=== PATIENT | male | born 1980 | race Caucasian/White ===

== ENCOUNTER 2020-09-06 04:12 | Emergency (ER) | payer MEDICAID ==
[~2020-09-06] VITALS: Ht 182.9 cm; Wt 79.5 kg
[2020-09-06 04:17] VITALS: BP 149/90
[2020-09-06] MEDS ORDERED: ondansetron 4mg/5ml UD cup PO ONE (05:00)
[2020-09-06] MEDS ORDERED: thiamine 100mg tablet PO ONE (05:00)
[2020-09-06] MEDS ORDERED: LORazepam 1 MG tablet PO ONE (05:00)
[2020-09-06] MEDS ORDERED: GABA-534 PO (05:10)
[2020-09-06] MEDS ORDERED: ondansetron 4mg rapidly disintigrating tab PO ONE (05:20)
== END 2020-09-06 05:28 | disposition home or self-care (01) ==
LOC: ER 04:13
DX: F10.239 Alcohol dependence with withdrawal, unspecified (principal); R11.0 Nausea; Z59.0 Homelessness; Y90.9 Presence of alcohol in blood, level not specified
CPT/HCPCS: 99284

== ENCOUNTER 2022-12-27 18:36 | Inpatient (IN) | payer MEDICAID ==
[~2022-12-27] VITALS: Ht 172.7 cm; Wt 104.8 kg
[~2022-12-27 18:36] MED LIST: GABA-534 PO; epiNEPHrine 0.1mg/ml 10ml syringe ONE; sod chloride 0.9% 10ml flush syringe IV ONE; sodium bicarbonate (8.4%) 1 mEq/ml syringe ONE
[2022-12-27] MEDS ORDERED: naloxone 2mg/2ml inj ONE (18:44)
[2022-12-27] MEDS ORDERED: dextrose 50%-water 50ml dispensing syringe IV ONE ×2 (18:45→19:00)
[2022-12-27 18:55] LABS: ABG BASE EXCESS -22.2 mmol/L (-2.0-2.0); ABG OXYGEN SATURATION 98.2 % (94-97); ABG PCO2 (T) 32.9 mmHg (35.0-48.0); ABG PO2 (T) 241.2 mmHg (75.0-100.0); ALLEN'S TEST POSITIVE; FCOHb 0.3 % (0.0-3.9); FMetHb 0.2 % (0.0-1.5); FO2Hb 97.7 % (94-97); TOTAL HEMOGLOBIN 12.7 G/dl (14.0-17.9)
[2022-12-27] MEDS ORDERED: dexamethasone sod phosphate 10mg/ml inj IV STA (18:55)
[2022-12-27] MEDS ORDERED: normal saline 1000ML IV soln IVB ONE ×2 (18:55→22:10)
[2022-12-27] MEDS ORDERED: potassium Cl 40MEQ/1/2NS 520ml 520 ML IV PRN ×2 (18:55→21:25)
[2022-12-27] MEDS ORDERED: potassium Cl 20 mEq SR tablet PO PRN ×4 (18:55→21:25)
[2022-12-27] MEDS ORDERED: magnesium 4gm in 100ml NS 100 ML IV PRN ×2 (18:55→21:25)
[2022-12-27] MEDS ORDERED: magnesium Cl slow-release 64mg tablet PO PRN ×2 (18:55→21:25)
[2022-12-27] MEDS ORDERED: dextrose 5%-1/2 normal saline 1,000 ML IV ONE (19:00)
[2022-12-27 19:16] LABS: BASOPHILS % (AUTO) 0.6 % (0-1); EOSINOPHILS % (AUTO) 0 % (0-6); HEMATOCRIT 30.4 % (42.0-52.0); HEMOGLOBIN 9.7 g/dl (14.0-17.9); LYMPHOCYTES # (AUTO) 0.3 X10'3 (1.1-4.8); LYMPHOCYTES % (AUTO) 5.6 % (21-51); MEAN CORPUSCULAR HEMOGLOBIN 30.4 PG (27.0-31.0); MEAN CORPUSCULAR HGB CONC 31.9 g/dL (33.0-36.5); MEAN CORPUSCULAR VOLUME 95.5 FL (78-98); MEAN PLATELET VOLUME 11.4 FL (7.4-10.4); MONOCYTES # (AUTO) 0.2 X10'3 (0-0.9); MONOCYTES % (AUTO) 3.5 % (2-12); NEUTROPHILS # (AUTO) 5.6 X10'3 (1.8-7.7); NEUTROPHILS % (AUTO) 90.3 % (42-75); PLATELET COUNT 65 X10'3 (140-440); RED BLOOD COUNT 3.18 X10'6 (4.70-6.10); RED CELL DISTRIBUTION WIDTH 15.8 % (11.5-14.5); WHITE BLOOD COUNT 6.2 X10'3 (4.5-11.0)
[2022-12-27 19:23] LABS: ALANINE AMINOTRANSFERASE 337 U/L (12-78); ALBUMIN 2.7 G/DL (3.4-5.0); ALBUMIN/GLOBULIN RATIO 1.1 (1.1-1.5); ALKALINE PHOSPHATASE 108 IU/L (46-116); ANION GAP 33 (8-16); ASPARTATE AMINO TRANSFERASE 759 U/L (10-37); BILIRUBIN,TOTAL 2.9 MG/DL (0.1-1.0); BLOOD UREA NITROGEN 49 MG/DL (7-18); BUN/CREATININE RATIO 23.1 (5.4-32.0); CALCIUM 7.7 MG/DL (8.5-10.1); CHLORIDE 82 MMOL/L (99-107); CREATININE 2.12 MG/DL (0.60-1.10); ETHANOL 0.242 GM/DL (0.0-0.010); MAGNESIUM 3.6 MG/DL (1.5-2.4); POTASSIUM 4.9 MMOL/L (3.5-5.1); SODIUM 125 MMOL/L (135-145); TOTAL PROTEIN 5.2 G/DL (6.4-8.2); eGFR 34 ML/MIN
[2022-12-27 19:27] LABS: PHOSPHORUS 11.5 MG/DL (2.3-4.5)
[2022-12-27 19:29] LABS: GLUCOSE 9 MG/DL (70-104); TOTAL CARBON DIOXIDE 10.5 MMOL/L (24-32)
[2022-12-27] MEDS ORDERED: propofol 1000mg/100ml bottle 100 ML IV PRN (19:40)
[2022-12-27] MEDS ORDERED: etomidate 2mg/ml inj. IV ONE (19:40)
[2022-12-27] MEDS ORDERED: rocuronium 10mg/ml inj IV ONE ×2 (19:40→21:00)
[2022-12-27 19:43] LABS: TOTAL CELLS COUNTED 100
[2022-12-27 19:44] LABS: PLATELET ESTIMATE DECREASED
[2022-12-27 19:45] LABS: BURR CELLS 3+
[2022-12-27 19:59] VITALS: BP 69/28
[2022-12-27] MEDS ORDERED: K and/or MAG REPLACEMENT MC SCH (20:00)
[2022-12-27 20:07] LABS: LACTIC SEPSIS 18.9 MMOL/L (0.4-2.0)
[2022-12-27 20:43] LABS: CLARITY,URINE SLIGHTLY CLOUDY (Clear); COLOR,URINE AMBER (Yellow); GLUCOSE, URINE NEGATIVE (Neg); KETONES,URINE 15 mg/dl (Neg); LEUKOCYTE ESTERASE ,URINE NEGATIVE (Neg); NITRITES, URINE NEGATIVE (Neg); OCCULT BLOOD,URINE NEGATIVE (Neg); PROTEIN,URINE TRACE mg/dl (Neg); UROBILINOGEN,URINE 0.2 E.U/dL (0.2-1.0)
[2022-12-27 20:44] LABS: UA COLLECTION TYPE FOLEY CATH
[2022-12-27 20:48] LABS: HYALINE CASTS >30 /LPF (NEGATIVE); MUCUS STRANDS FEW /LPF (Neg); SQUAMOUS EPITHELIAL CELL,UR FEW /LPF (FEW)
[2022-12-27 20:49] LABS: BACTERIA,URINE FEW /HPF (Neg); RBC,URINE 0-2 /HPF (0-2); WBC,URINE 0-4 /HPF (0-4)
[2022-12-27] MEDS ORDERED: piperacillin/tazo 3.375gm/50ml 50 ML IV ONE (20:50)
[2022-12-27] MEDS ORDERED: etomidate 2mg/ml inj. ONE (21:00)
[2022-12-27 21:04] LABS: URINE AMPHETAMINE SCREEN NEGATIVE (Neg); URINE BARBITUATE SCREEN NEGATIVE (Neg); URINE BENZODIAZEPINES SCREEN NEGATIVE (Neg); URINE CANNABINOID SCREEN POSITIVE (Neg); URINE COCAINE SCREEN NEGATIVE (Neg); URINE METHADONE SCREEN NEGATIVE (Neg); URINE OPIATE SCREEN NEGATIVE (Neg); URINE PHENCYCLIDINE SCREEN NEGATIVE (Neg)
[2022-12-27] MEDS ORDERED: vancomycin/NS 1 GM ADD-VANTAGE 250 ML IV SCH (21:13)
[2022-12-27] MEDS ORDERED: acetaminophen 325mg tablet PO PRN (21:25)
[2022-12-27] MEDS ORDERED: mag hydrox/Alum hydrox/simeth 30ml oral suspension PO PRN (21:25)
[2022-12-27] MEDS ORDERED: magnesium hydroxide 30ml (MOM) UD suspension PO PRN (21:25)
[2022-12-27] MEDS ORDERED: ondansetron/PF 4mg/2ml inj IV PRN (21:25)
[2022-12-27] MEDS ORDERED: vasopressin inj. 40 UNIT in dextrose 5%-water 50ml 38 ML IV SCH (22:00)
[2022-12-27 22:03] LABS: ABG BASE EXCESS -23.3 mmol/L (-2.0-2.0); ABG HCO3 6.8 mmol/L (22.0-26.0); ABG OXYGEN SATURATION 97.5 % (94-97); ABG PCO2 (T) 21.7 mmHg (35.0-48.0); ABG PO2 (T) 132.9 mmHg (75.0-100.0); FCOHb 0.3 % (0.0-3.9); FMetHb 0.4 % (0.0-1.5); FO2Hb 96.8 % (94-97); PATIENT TEMPERATURE 30.4; PEEP 5 cm H2O; RESPIRATORY RATE 18 b/min; TIDAL VOLUME 500 mL; TOTAL HEMOGLOBIN 10.8 G/dl (14.0-17.9)
[2022-12-27 22:04] LABS: CREATINE KINASE 4128 U/L (39-308)
[2022-12-27 22:28] LABS: ACETAMINOPHEN 3.7 UG/ML (10-30)
[2022-12-27] MEDS ORDERED: DEXTROSE 5% IV ONE ×3 (22:30→22:48)
[2022-12-27] MEDS ORDERED: ACETYLCYSTEINE IV ONE ×3 (22:30→22:48)
[2022-12-27] MEDS ORDERED: WATER IV ONE ×3 (22:30→22:48)
[2022-12-27] MEDS: SODIUM BICARB 150mEq/D5W 1L 1,000 ML IV SCH (22:36)
[2022-12-27] MEDS: vasopressin inj. 40 UNIT in normal saline 50ml IV soln 38 ML IV SCH (22:36)
[2022-12-27 22:57] VITALS: BP 85/24
[2022-12-28] VITALS (30 sets, daily range): BP systolic 95–199; BP diastolic 37–97
[2022-12-28] MEDS: NORepinephrine 8mg/ 250ml NS 250 ML IV PRN ×2 (00:37→20:57)
[2022-12-28] MEDS: methylPREDNISolone sod succ 125mg/2ml vial IV SCH ×3 (00:45→20:10)
[2022-12-28 02:28] LABS: HEMOGLOBIN 10.1 g/dl (14.0-17.9); LYMPHOCYTES # (AUTO) 0.4 X10'3 (1.1-4.8); MEAN CORPUSCULAR HEMOGLOBIN 30.8 PG (27.0-31.0); MONOCYTES # (AUTO) 0.2 X10'3 (0-0.9); MONOCYTES % (AUTO) 2.7 % (2-12); RED CELL DISTRIBUTION WIDTH 15.2 % (11.5-14.5)
[2022-12-28 02:30] LABS: BASOPHILS % (AUTO) 0.2 % (0-1); EOSINOPHILS % (AUTO) 0.3 % (0-6); HEMATOCRIT 30.1 % (42.0-52.0); LYMPHOCYTES % (AUTO) 6.2 % (21-51); MEAN CORPUSCULAR HGB CONC 33.4 g/dL (33.0-36.5); MEAN CORPUSCULAR VOLUME 92.3 FL (78-98); MEAN PLATELET VOLUME 10.9 FL (7.4-10.4); NEUTROPHILS # (AUTO) 5.6 X10'3 (1.8-7.7); NEUTROPHILS % (AUTO) 90.6 % (42-75); PLATELET COUNT 58 X10'3 (140-440); RED BLOOD COUNT 3.26 X10'6 (4.70-6.10); WHITE BLOOD COUNT 6.2 X10'3 (4.5-11.0)
[2022-12-28 02:48] LABS: APTT 62 SECONDS (22-32)
[2022-12-28 03:02] LABS: ALBUMIN/GLOBULIN RATIO 0.9 (1.1-1.5); ALKALINE PHOSPHATASE 97 IU/L (46-116); ANION GAP 27 (8-16); BILIRUBIN,TOTAL 3.3 MG/DL (0.1-1.0); BLOOD UREA NITROGEN 45 MG/DL (7-18); BUN/CREATININE RATIO 18.9 (5.4-32.0); CHLORIDE 84 MMOL/L (99-107); CREATININE 2.38 MG/DL (0.60-1.10); GLUCOSE 144 MG/DL (70-104); MAGNESIUM 2.5 MG/DL (1.5-2.4); POTASSIUM 5.8 MMOL/L (3.5-5.1); SODIUM 124 MMOL/L (135-145); TOTAL PROTEIN 4.2 G/DL (6.4-8.2); eGFR 30 ML/MIN
[2022-12-28 03:03] LABS: NUCLEATED RED BLOOD CELLS 2 /100WBC (0-0); TOTAL CELLS COUNTED 100
[2022-12-28 03:04] LABS: PLATELET ESTIMATE DECREASED
[2022-12-28 03:05] LABS: BURR CELLS 3+; SCHISTOCYTES FEW
[2022-12-28 03:14] LABS: CALCIUM 5.6 MG/DL (8.5-10.1); TOTAL CARBON DIOXIDE 12.7 MMOL/L (24-32)
[2022-12-28 03:15] LABS: PHOSPHORUS 10.3 MG/DL (2.3-4.5)
[2022-12-28 03:16] LABS: ALANINE AMINOTRANSFERASE 2286 U/L (12-78)
[2022-12-28 03:32] LABS: ASPARTATE AMINO TRANSFERASE 6335 U/L (10-37)
[2022-12-28] MEDS ORDERED: DEXTROSE 5% IV ONE ×3 (04:00)
[2022-12-28] MEDS ORDERED: ACETYLCYSTEINE IV ONE ×3 (04:00)
[2022-12-28] MEDS ORDERED: WATER IV ONE ×3 (04:00)
[2022-12-28 04:01] LABS: ABG BASE EXCESS -16.2 mmol/L (-2.0-2.0); ABG HCO3 10.4 mmol/L (22.0-26.0); ABG OXYGEN SATURATION 90.8 % (94-97); ABG PCO2 (T) 24.7 mmHg (35.0-48.0); ALLEN'S TEST POSITIVE; FCOHb 0.3 % (0.0-3.9); FMetHb 0.3 % (0.0-1.5); FO2Hb 90.3 % (94-97); PATIENT TEMPERATURE 34.7; PEEP 5 cm H2O; RESPIRATORY RATE 18 b/min; TIDAL VOLUME 500 mL; TOTAL HEMOGLOBIN 11.8 G/dl (14.0-17.9)
[2022-12-28] MEDS: SODIUM BICARB 150mEq/D5W 1L 1,000 ML IV SCH ×4 (04:25→23:45)
--- NOTE | 2022-12-28 07:34 | NUR ---
Report received from Izabel FLORES in ER in preparation for pt to arrive to CICU room 2014. Per izabel, pt intubaed, SR with PVC, sedated with propofol, running levo and vasopressin. bicarb running, blood sugar resolving. lines patent, pt on arctic sun, currently 35.7 celsius. F/C patent and draining. pt to head up to CICU at any time. all questions answered.
[2022-12-28] MEDS: heparin, porcine 5000 units/ml vial SQ SCH ×2 (08:00→20:00)
[2022-12-28] MEDS: docusate sod 100mg capsule PO SCH ×2 (08:00→20:00)
[2022-12-28] MEDS ORDERED: thiamine inj. 100 MG in normal saline 100ml IV soln 99 ML IV ONE (08:00)
[2022-12-28] MEDS: K and/or MAG REPLACEMENT MC SCH ×2 (08:00→20:00)
--- NOTE | 2022-12-28 08:30 | NUR ---
Pt arrived to room 2015 @ 0800 accompanied by two RT and [employer]. Pt 4 person transferred to the bed, IV's transferred over, ET set up by RT. GTTS: bicarb 150ml; Levo 0.4; vasopres 0.03; acytylcysteine 63ml; propo 50mcg. pt 35.7C. arctic sun removed, bear hugger placed. full bed bath given. skin with scattered small scabs and bruises. RLE previous BKA: fully healed. pt covered in tattoos. pt noted with wince, grimacing when laid flat, turned or suctioned. soft restraints in place to BUE. Bicarb 14. Dr. Bradford notified. continue with current POC at this time. f/c patent. chest rising symmetrically. safety measures in place. sofia prominences offloaded.
[2022-12-28] MEDS ORDERED: propofol 1000mg/100ml bottle 100 ML IV PRN (09:54)
[2022-12-28] MEDS ORDERED: propofol 1000mg/100ml bottle 100 ML IV SCH (10:00)
[2022-12-28] MEDS ORDERED: albumin (human) 25% 100 ML IV solution IV ONE (10:00)
[2022-12-28 10:40] LABS: ABG BASE EXCESS -11.4 mmol/L (-2.0-2.0); ABG HCO3 13.3 mmol/L (22.0-26.0); ABG OXYGEN SATURATION 99.1 % (94-97); ABG PCO2 (T) 26.2 mmHg (35.0-48.0); ABG PO2 (T) 381.3 mmHg (75.0-100.0); FCOHb 0.2 % (0.0-3.9); FMetHb 0.5 % (0.0-1.5); FO2Hb 98.4 % (94-97); PATIENT TEMPERATURE 36.5; PEEP 10 cm H2O; RESPIRATORY RATE 18 b/min; TIDAL VOLUME 500 mL; TOTAL HEMOGLOBIN 10.8 G/dl (14.0-17.9)
--- NOTE | 2022-12-28 11:00 | NUR ---
CODE BLUE AT 1018AM Pt presented with severe bradycardia, advanced to asystole. Compressions started at 1018, code blue sounded. Compressions started by this nurse. RT at bedside, and battery recharger. Dr. Bradford called to bed side. additional help recruited. propofol turned off, Epi and bicarb given multiple times per Dr. Bradford orders, and two leters of normal saline bolus given. Pt regained pulse and ART line was placed. by 11 am pt alert to voice AEB making eye contact with the nurse. pt abd increasingly distended
[2022-12-28] MEDS: piperacillin/tazo 3.375gm/50ml 50 ML IV SCH ×4 (11:24→23:46)
[2022-12-28] MEDS: pantoprazole 40MG/NS 100ML BAG 100 ML IV SCH ×3 (11:26→21:00)
--- NOTE | 2022-12-28 11:30 | NUR ---
Dr. Suarez at bedside during code blue and gave order for protonix drip
--- NOTE | 2022-12-28 11:58 | NUR ---
Dr. De Leon to see pt New orders to start eloquis 10 BID, albumin 5% give 500ml x1, weight bearing as tolerated, advance diet as tolerated. continue 5%dextrose lactated ringers, ok to pull ART line when BP stable. med rec address. Spoke to pharmacist. Moises stated to pt plan is a couple days more in the hospital. Addendum: 12/28/22 at 1338 by Katlin Isidro RN Error. wrong chart. strike out above note.
[2022-12-28] MEDS: albumin (Human) 5% 250ml 250 ML IV SCH ×4 (12:32→22:33)
[2022-12-28 12:35] LABS: LYMPHOCYTES # (AUTO) 0.3 X10'3 (1.1-4.8); MONOCYTES # (AUTO) 0.2 X10'3 (0-0.9)
[2022-12-28 12:37] LABS: BASOPHILS % (AUTO) 0.3 % (0-1); EOSINOPHILS # (AUTO) 0.1 X10'3 (0-0.9); EOSINOPHILS % (AUTO) 1.7 % (0-6); HEMATOCRIT 28.2 % (42.0-52.0); HEMOGLOBIN 9.3 g/dl (14.0-17.9); LYMPHOCYTES % (AUTO) 6.9 % (21-51); MEAN CORPUSCULAR HEMOGLOBIN 30.3 PG (27.0-31.0); MEAN CORPUSCULAR VOLUME 91.9 FL (78-98); MEAN PLATELET VOLUME 10.7 FL (7.4-10.4); MONOCYTES % (AUTO) 4.9 % (2-12); NEUTROPHILS # (AUTO) 3.6 X10'3 (1.8-7.7); NEUTROPHILS % (AUTO) 86.2 % (42-75); RED BLOOD COUNT 3.07 X10'6 (4.70-6.10); RED CELL DISTRIBUTION WIDTH 15.1 % (11.5-14.5); WHITE BLOOD COUNT 4.2 X10'3 (4.5-11.0)
[2022-12-28 12:53] LABS: PLATELET COUNT 33 X10'3 (140-440)
[2022-12-28 13:07] LABS: ALBUMIN 2.7 G/DL (3.4-5.0); ALKALINE PHOSPHATASE 479 IU/L (46-116); ANION GAP 30 (8-16); BILIRUBIN,TOTAL 4.9 MG/DL (0.1-1.0); BLOOD UREA NITROGEN 53 MG/DL (7-18); BUN/CREATININE RATIO 19.9 (5.4-32.0); CHLORIDE 82 MMOL/L (99-107); CREATININE 2.66 MG/DL (0.60-1.10); GLUCOSE 202 MG/DL (70-104); SODIUM 125 MMOL/L (135-145); eGFR 26 ML/MIN
[2022-12-28 13:16] LABS: ALBUMIN/GLOBULIN RATIO 1.2 (1.1-1.5); TOTAL PROTEIN 4.9 G/DL (6.4-8.2)
[2022-12-28 13:18] LABS: POTASSIUM 6.7 MMOL/L (3.5-5.1); TOTAL CARBON DIOXIDE 13.4 MMOL/L (24-32)
[2022-12-28 13:19] LABS: CALCIUM < 5.0 MG/DL (8.5-10.1)
[2022-12-28 13:40] LABS: ASPARTATE AMINO TRANSFERASE > 7000 U/L (10-37)
[2022-12-28 13:41] LABS: ALANINE AMINOTRANSFERASE > 7000 U/L (12-78)
--- NOTE | 2022-12-28 13:41 | NUR ---
Pt continues labile in state. albumin given per MD order. new orders from Dr. Bradford for meds, routine labs. Dr. Bradford notified of critical labs. new orders for a unit of platelets, labs routine, insulin with D50 for hyperkalemia, plans to place dialysis catheter then start dialysis, fentanyl drip etc. pt with 800ml coffee ground emesis from OG suction of stomach.
[2022-12-28 13:48] LABS: APTT 58 SECONDS (22-32)
[2022-12-28] MEDS ORDERED: dextrose 50%-water 50ml dispensing syringe IV ONE (14:00)
[2022-12-28] MEDS ORDERED: insulin regular, human U-100 3ml vial - multi-dose IV ONE (14:00)
[2022-12-28] MEDS ORDERED: heparin 1,000 units/ml 10ml inj HE ONE ×2 (15:40)
[2022-12-28] MEDS: thiamine 100mg/ml 2ml inj. IV SCH (16:02)
[2022-12-28] MEDS: folic acid 1mg/0.2ml inj IV SCH (16:03)
[2022-12-28] MEDS: octreotide inj. 500 MCG in normal saline 100ml IV soln 97.5 ML IV SCH (16:32)
[2022-12-28 18:08] LABS: HEMATOCRIT 26.6 % (42.0-52.0); HEMOGLOBIN 9.1 g/dl (14.0-17.9); MEAN CORPUSCULAR HEMOGLOBIN 31.1 PG (27.0-31.0); MEAN CORPUSCULAR HGB CONC 34.1 g/dL (33.0-36.5); MEAN CORPUSCULAR VOLUME 90.9 FL (78-98); MEAN PLATELET VOLUME 9.5 FL (7.4-10.4); PLATELET COUNT 67 X10'3 (140-440); RED BLOOD COUNT 2.93 X10'6 (4.70-6.10); RED CELL DISTRIBUTION WIDTH 15.4 % (11.5-14.5); WHITE BLOOD COUNT 4.2 X10'3 (4.5-11.0)
[2022-12-28 18:19] LABS: ALBUMIN 3.1 G/DL (3.4-5.0); ANION GAP 23 (8-16); BLOOD UREA NITROGEN 41 MG/DL (7-18); BUN/CREATININE RATIO 18.6 (5.4-32.0); CHLORIDE 89 MMOL/L (99-107); GLUCOSE 182 MG/DL (70-104); SODIUM 132 MMOL/L (135-145); TOTAL CARBON DIOXIDE 20.4 MMOL/L (24-32); eGFR 33 ML/MIN
[2022-12-28 18:21] LABS: POTASSIUM 4.3 MMOL/L (3.5-5.1)
[2022-12-28 18:26] LABS: CALCIUM 5.8 MG/DL (8.5-10.1)
--- NOTE | 2022-12-28 18:31 | NUR ---
Problems reprioritized. Patient report given, questions answered & plan of care reviewed with Jodee FLORES.
--- NOTE | 2022-12-28 18:35 | NUR ---
Patient in room CICU 2014. I have received report from SANDRA Dalal and had the opportunity to ask questions and assume patient care. Patient intubated/sedated, I will continue to monitor.
[2022-12-28 19:10] LABS: APTT 54 SECONDS (22-32); D-DIMER 13.92 MG/L FEU (0-0.50)
[2022-12-28 19:15] LABS: PLATELET COUNT 67 X10'3 (140-440)
[2022-12-28] MEDS ORDERED: VANCOMYCIN 750MG IV in NS 250 ML IV SCH (21:00)
[2022-12-28] MEDS: FENTANYL-0.9 % NACL/PF 100 ML IV PRN (21:41)
[2022-12-29] VITALS (41 sets, daily range): BP systolic 103–145; BP diastolic 24–62
[2022-12-29 00:13] LABS: HEMATOCRIT 24.2 % (42.0-52.0); HEMOGLOBIN 8.3 g/dl (14.0-17.9); MEAN CORPUSCULAR HEMOGLOBIN 31.1 PG (27.0-31.0); MEAN CORPUSCULAR HGB CONC 34.5 g/dL (33.0-36.5); MEAN CORPUSCULAR VOLUME 90.2 FL (78-98); MEAN PLATELET VOLUME 10.5 FL (7.4-10.4); RED BLOOD COUNT 2.68 X10'6 (4.70-6.10); RED CELL DISTRIBUTION WIDTH 15.2 % (11.5-14.5); WHITE BLOOD COUNT 8.3 X10'3 (4.5-11.0)
[2022-12-29 00:30] LABS: PLATELET COUNT 36 X10'3 (140-440)
[2022-12-29 00:38] LABS: ANION GAP 22 (8-16); BLOOD UREA NITROGEN 32 MG/DL (7-18); BUN/CREATININE RATIO 11.6 (5.4-32.0); CHLORIDE 91 MMOL/L (99-107); CREATININE 2.75 MG/DL (0.60-1.10); GLUCOSE 138 MG/DL (70-104); SODIUM 133 MMOL/L (135-145); TOTAL CARBON DIOXIDE 20.5 MMOL/L (24-32); eGFR 25 ML/MIN
[2022-12-29 00:40] LABS: POTASSIUM 4.8 MMOL/L (3.5-5.1)
[2022-12-29 00:42] LABS: CALCIUM 5.5 MG/DL (8.5-10.1)
--- NOTE | 2022-12-29 00:46 | NUR ---
Cld Dr. Bradford as patient's platelets are 36. Per MD give 1 unit of Platelets.
[2022-12-29] MEDS: albumin (Human) 5% 250ml 250 ML IV SCH ×7 (01:54→21:24)
[2022-12-29] MEDS: pantoprazole 40MG/NS 100ML BAG 100 ML IV SCH ×5 (02:39→21:24)
[2022-12-29 03:12] LABS: BASOPHILS % (AUTO) 0.1 % (0-1); EOSINOPHILS # (AUTO) 0.2 X10'3 (0-0.9); HEMATOCRIT 23.7 % (42.0-52.0); MONOCYTES # (AUTO) 0.8 X10'3 (0-0.9)
[2022-12-29 03:14] LABS: EOSINOPHILS % (AUTO) 1.5 % (0-6); LYMPHOCYTES # (AUTO) 0.3 X10'3 (1.1-4.8); LYMPHOCYTES % (AUTO) 3.1 % (21-51); MEAN CORPUSCULAR HEMOGLOBIN 30.9 PG (27.0-31.0); MEAN CORPUSCULAR HGB CONC 33.8 g/dL (33.0-36.5); MEAN CORPUSCULAR VOLUME 91.3 FL (78-98); MEAN PLATELET VOLUME 9.3 FL (7.4-10.4); MONOCYTES % (AUTO) 7.3 % (2-12); NEUTROPHILS # (AUTO) 9.7 X10'3 (1.8-7.7); PLATELET COUNT 78 X10'3 (140-440); RED CELL DISTRIBUTION WIDTH 15.4 % (11.5-14.5)
[2022-12-29] MEDS: NORepinephrine 8mg/ 250ml NS 250 ML IV PRN ×4 (03:23→10:09)
[2022-12-29 03:42] LABS: ALBUMIN 3.1 G/DL (3.4-5.0); ALKALINE PHOSPHATASE 524 IU/L (46-116); BILIRUBIN,TOTAL 7.5 MG/DL (0.1-1.0); BLOOD UREA NITROGEN 32 MG/DL (7-18); BUN/CREATININE RATIO 10.6 (5.4-32.0); CHLORIDE 91 MMOL/L (99-107); CREATININE 3.02 MG/DL (0.60-1.10); GLUCOSE 132 MG/DL (70-104); MAGNESIUM 1.8 MG/DL (1.5-2.4); NUCLEATED RED BLOOD CELLS 6 /100WBC (0-0); TOTAL CARBON DIOXIDE 22.3 MMOL/L (24-32); TOTAL CELLS COUNTED 100; eGFR 23 ML/MIN
[2022-12-29 03:43] LABS: APTT 59 SECONDS (22-32); PLATELET ESTIMATE DECREASED
[2022-12-29 03:44] LABS: STOMATOCYTES 2+
[2022-12-29 03:45] LABS: HYPOCHROMASIA 2+
[2022-12-29 03:55] LABS: CALCIUM 5.6 MG/DL (8.5-10.1)
[2022-12-29 04:34] LABS: ABG BASE EXCESS -6.9 mmol/L (-2.0-2.0); ABG HCO3 19.4 mmol/L (22.0-26.0); ABG OXYGEN SATURATION 93.6 % (94-97); ABG PCO2 (T) 42.8 mmHg (35.0-48.0); FCOHb 0.6 % (0.0-3.9); FMetHb 0.8 % (0.0-1.5); FO2Hb 92.3 % (94-97); PEEP 10 cm H2O; RESPIRATORY RATE 18 b/min; TIDAL VOLUME 500 mL; TOTAL HEMOGLOBIN 8.6 G/dl (14.0-17.9)
[2022-12-29 05:13] LABS: ANION GAP 21 (8-16); SODIUM 134 MMOL/L (135-145)
[2022-12-29 05:25] LABS: ALANINE AMINOTRANSFERASE 6327 U/L (12-78); ALBUMIN/GLOBULIN RATIO 1.8 (1.1-1.5); ASPARTATE AMINO TRANSFERASE > 7000 U/L (10-37); PHOSPHORUS 6.3 MG/DL (2.3-4.5); TOTAL PROTEIN 4.8 G/DL (6.4-8.2)
--- NOTE | 2022-12-29 06:20 | NUR ---
I cld Dr. Bradford when GI Lab cld to say they don't think they can scope as patient's INR is 3.4. Per MD the INR can't be corrected, so have the IR Doc come and scope anyway.
--- NOTE | 2022-12-29 06:20 | NUR ---
Problems reprioritized. Patient report given, questions answered & plan of care reviewed with SANDRA Yang.
--- NOTE | 2022-12-29 06:30 | NUR ---
Patient in room CICU 2014. I have received report from SANDRA Ellsworth and had the opportunity to ask questions and assume patient care.
[2022-12-29] MEDS: SODIUM BICARB 150mEq/D5W 1L 1,000 ML IV SCH ×3 (07:08→20:46)
[2022-12-29] MEDS: FENTANYL-0.9 % NACL/PF 100 ML IV PRN ×2 (07:23→17:12)
[2022-12-29] MEDS: heparin, porcine 5000 units/ml vial SQ SCH (07:24)
[2022-12-29] MEDS: K and/or MAG REPLACEMENT MC SCH ×2 (07:24→20:00)
[2022-12-29] MEDS: docusate sod 100mg capsule PO SCH ×2 (07:24→20:00)
[2022-12-29] MEDS: thiamine 100mg/ml 2ml inj. IV SCH (07:26)
[2022-12-29] MEDS: folic acid 1mg/0.2ml inj IV SCH (07:26)
[2022-12-29] MEDS: methylPREDNISolone sod succ 125mg/2ml vial IV SCH (07:26)
[2022-12-29] MEDS: piperacillin/tazo 3.375gm/50ml 50 ML IV SCH ×2 (07:29→16:02)
[2022-12-29 07:50] LABS: HEMATOCRIT 23.5 % (42.0-52.0); HEMOGLOBIN 7.8 g/dl (14.0-17.9); MEAN CORPUSCULAR HEMOGLOBIN 30.6 PG (27.0-31.0); MEAN CORPUSCULAR HGB CONC 33.3 g/dL (33.0-36.5); MEAN PLATELET VOLUME 9.8 FL (7.4-10.4); PLATELET COUNT 57 X10'3 (140-440); RED BLOOD COUNT 2.56 X10'6 (4.70-6.10); RED CELL DISTRIBUTION WIDTH 15.8 % (11.5-14.5); WHITE BLOOD COUNT 14.4 X10'3 (4.5-11.0)
[2022-12-29 08:01] LABS: ALBUMIN 3.3 G/DL (3.4-5.0); ANION GAP 19 (8-16); BLOOD UREA NITROGEN 33 MG/DL (7-18); BUN/CREATININE RATIO 9.6 (5.4-32.0); CHLORIDE 90 MMOL/L (99-107); CREATININE 3.44 MG/DL (0.60-1.10); GLUCOSE 126 MG/DL (70-104); SODIUM 133 MMOL/L (135-145); eGFR 20 ML/MIN
[2022-12-29 08:03] LABS: CALCIUM 5.4 MG/DL (8.5-10.1); POTASSIUM 5.9 MMOL/L (3.5-5.1)
[2022-12-29] MEDS ORDERED: MIDAZolam 1 MG/ML 5ML VIAL ONE (08:14)
[2022-12-29 09:29] LABS: CLARITY,URINE TURBID (Clear); COLOR,URINE YELLOW (Yellow); GLUCOSE, URINE 100 mg/dl (Neg); KETONES,URINE TRACE mg/dl (Neg); LEUKOCYTE ESTERASE ,URINE NEGATIVE (Neg); NITRITES, URINE NEGATIVE (Neg); OCCULT BLOOD,URINE LARGE (Neg); PROTEIN,URINE >=300 mg/dl (Neg); UROBILINOGEN,URINE 0.2 E.U/dL (0.2-1.0)
[2022-12-29 09:30] LABS: UA COLLECTION TYPE FOLEY CATH
--- NOTE | 2022-12-29 09:30 | NUR ---
Patient had bedside EGD. Patient tolerated well.
[2022-12-29 09:41] LABS: WBC,URINE NONE SEEN /HPF (0-4)
[2022-12-29 09:42] LABS: AMORPHOUS URATES 3+; BACTERIA,URINE NONE SEEN /HPF (Neg); COARSE GRANULAR CAST 0-3 /LPF (NEGATIVE); RBC,URINE 0-2 /HPF (0-2); SQUAMOUS EPITHELIAL CELL,UR FEW /LPF (FEW)
[2022-12-29] MEDS ORDERED: heparin 1,000 units/ml 10ml inj HE ONE ×6 (09:45→15:10)
[2022-12-29 09:47] LABS: TRANSITIONAL EPI CELLS,URINE FEW /HPF
[2022-12-29 09:57] LABS: URIC ACID CRYSTALS FEW /HPF (NEGATIVE)
[2022-12-29] MEDS ORDERED: EPOETIN ALFA-EPBX 20,000 UNIT/ML 1 ML MDV IV ONE ×2 (10:00→15:05)
[2022-12-29] MEDS ORDERED: heparin 1,000unit/ml 10ml vial 10 ML IV ONE (10:00)
[2022-12-29] MEDS ORDERED: normal saline 1000ml 250 ML IV PRN (10:00)
[2022-12-29 10:16] LABS: SODIUM,URINE RANDOM < 15 MEQ/L; TOTAL PROTEIN,URINE RANDOM 1299.3 MG/DL
[2022-12-29 10:29] LABS: UA EOSINOPHILS NO EOS /HPF
[2022-12-29] MEDS: NORepinephrine inj. 32 MG in normal saline 250ml IV soln 218 ML IV SCH ×2 (10:29→23:07)
[2022-12-29] MEDS ORDERED: potassium Cl 40MEQ/270ML bag 270 ML IV PRN (10:40)
[2022-12-29] MEDS ORDERED: bicarb dialysis sol 2K+/3 Ca2+ 5,000 ML HE SCH (10:40)
[2022-12-29] MEDS ORDERED: magnesium 4gm in 100ml NS 100 ML IV PRN (10:40)
[2022-12-29] MEDS ORDERED: sodium phosphate inj. 30 MMOL in normal saline 250ml IV soln 250 ML IV PRN (10:40)
[2022-12-29] MEDS ORDERED: calcium chloride inj. 1,000 MG in normal saline 100ml IV soln 90 ML IV PRN (11:02)
[2022-12-29 11:16] LABS: ALBUMIN 3.3 G/DL (3.4-5.0); ANION GAP 18 (8-16); BLOOD UREA NITROGEN 33 MG/DL (7-18); BUN/CREATININE RATIO 9.1 (5.4-32.0); CHLORIDE 91 MMOL/L (99-107); CREATININE 3.63 MG/DL (0.60-1.10); GLUCOSE 123 MG/DL (70-104); SODIUM 133 MMOL/L (135-145); TOTAL CARBON DIOXIDE 23.6 MMOL/L (24-32); eGFR 19 ML/MIN
[2022-12-29] MEDS: bicarb dialysis sol 2K+/3 Ca2+ 5,000 ML HE SCH ×6 (11:30→22:00)
[2022-12-29 11:37] LABS: POTASSIUM 5.9 MMOL/L (3.5-5.1)
[2022-12-29] MEDS: octreotide inj. 500 MCG in normal saline 100ml IV soln 97.5 ML IV SCH (11:43)
[2022-12-29 12:06] LABS: CALCIUM 5.2 MG/DL (8.5-10.1)
[2022-12-29 12:32] LABS: CREATINE KINASE 54304 U/L (39-308)
--- NOTE | 2022-12-29 12:42 | NUR ---
Malnutrition/Deshawn Consults: Pt found down outside now intubated w/ cardiac arrest yesterday DX septic shock, hepatic encephalopathy, hypothermia, GIB, lactic acidosis, etoh 0.242, probable rhabdomyolysis, and ALEYDA to start CVVH today per CCR this AM. Deshawn 12 w/ skin intact per RN. OG in place to suction w/ approval for EN as soon as practical per GI MD note; TF recs below. Pt unable to provide wt hx w/ no recent scaled wt hx in EMR though current scaled wt this admit is appropriate; at this time lacks minimum malnutrition criteria though is at risk given etoh hx. Receiving routine thiamine, folic acid for etoh. Will monitor for further nutrition intervention needs this admit. Rec: 1. IF TF continuous TF per MD; Pivot 1.5 at 65ml/hr goal would provide 1560ml volume/day, 2340 kcals, 1170ml water, and 146g protein. 2. IF TF; additional water flush per MD on CVVH 3. IF TF; PALB Q / 4. routine bowel regimen 5. daily scaled wts Addendum: 12/29/22 at [address] Amended: Links added.
[2022-12-29 13:05] LABS: HEMATOCRIT 22.1 % (42.0-52.0); HEMOGLOBIN 7.1 g/dl (14.0-17.9); MEAN CORPUSCULAR HEMOGLOBIN 29.9 PG (27.0-31.0); MEAN CORPUSCULAR HGB CONC 32.3 g/dL (33.0-36.5); MEAN CORPUSCULAR VOLUME 92.4 FL (78-98); MEAN PLATELET VOLUME 10.3 FL (7.4-10.4); RED BLOOD COUNT 2.39 X10'6 (4.70-6.10); RED CELL DISTRIBUTION WIDTH 15.5 % (11.5-14.5); WHITE BLOOD COUNT 14.4 X10'3 (4.5-11.0)
[2022-12-29 13:06] LABS: PLATELET COUNT 47 X10'3 (140-440)
--- NOTE | 2022-12-29 13:07 | NUR ---
Plt result came back at 47. Dr. Bradford stated no transfusions unless platelets drop to 20.
[2022-12-29] MEDS ORDERED: vancomycin/NS 1 GM ADD-VANTAGE 250 ML IV PRN (14:15)
[2022-12-29 18:08] LABS: HEMATOCRIT 22.6 % (42.0-52.0); HEMOGLOBIN 7.5 g/dl (14.0-17.9); MEAN CORPUSCULAR HEMOGLOBIN 30.7 PG (27.0-31.0); MEAN CORPUSCULAR HGB CONC 33.3 g/dL (33.0-36.5); MEAN CORPUSCULAR VOLUME 92.2 FL (78-98); MEAN PLATELET VOLUME 10.1 FL (7.4-10.4); RED BLOOD COUNT 2.46 X10'6 (4.70-6.10); RED CELL DISTRIBUTION WIDTH 15.4 % (11.5-14.5); WHITE BLOOD COUNT 14.8 X10'3 (4.5-11.0)
--- NOTE | 2022-12-29 18:08 | NUR ---
Problems reprioritized. Patient report given, questions answered & plan of care reviewed with SANDRA Walker.
--- NOTE | 2022-12-29 18:10 | NUR ---
Patient in room CICU 2014. I have received report from Celia FLORES and had the opportunity to ask questions and assume patient care.
[2022-12-29 18:20] LABS: PLATELET COUNT 44 X10'3 (140-440)
[2022-12-29 18:43] LABS: ALBUMIN 3.5 G/DL (3.4-5.0); ANION GAP 14 (8-16); BLOOD UREA NITROGEN 20 MG/DL (7-18); CALCIUM 6.4 MG/DL (8.5-10.1); CHLORIDE 96 MMOL/L (99-107); CREATININE 2.51 MG/DL (0.60-1.10); GLUCOSE 107 MG/DL (70-104); SODIUM 137 MMOL/L (135-145); TOTAL CARBON DIOXIDE 26.8 MMOL/L (24-32); eGFR 28 ML/MIN
[2022-12-29 19:01] LABS: POTASSIUM 4.2 MMOL/L (3.5-5.1)
[2022-12-29 19:02] LABS: CREATINE KINASE 60795 U/L (39-308)
[2022-12-29] MEDS: methylPREDNISolone sod succ/PF 40mg inj. IV SCH (20:08)
[2022-12-29] MEDS: vasopressin inj. 40 UNIT in normal saline 50ml IV soln 38 ML IV SCH (22:04)
[2022-12-30] VITALS (28 sets, daily range): BP systolic 75–150; BP diastolic 33–70
[2022-12-30] MEDS: pantoprazole 40MG/NS 100ML BAG 100 ML IV SCH ×3 (00:01→10:42)
[2022-12-30] MEDS: piperacillin/tazo 3.375gm/50ml 50 ML IV SCH ×2 (00:02→08:02)
[2022-12-30] MEDS: bicarb dialysis sol 2K+/3 Ca2+ 5,000 ML HE SCH ×7 (00:06→12:42)
[2022-12-30 00:22] LABS: MEAN CORPUSCULAR HEMOGLOBIN 31.2 PG (27.0-31.0); MEAN CORPUSCULAR HGB CONC 33.9 g/dL (33.0-36.5); MEAN CORPUSCULAR VOLUME 92.2 FL (78-98); MEAN PLATELET VOLUME 10.1 FL (7.4-10.4); RED BLOOD COUNT 2.16 X10'6 (4.70-6.10); RED CELL DISTRIBUTION WIDTH 15.9 % (11.5-14.5); WHITE BLOOD COUNT 13.8 X10'3 (4.5-11.0)
[2022-12-30 00:25] LABS: HEMOGLOBIN 6.8 g/dl (14.0-17.9); PLATELET COUNT 31 X10'3 (140-440)
[2022-12-30 00:30] LABS: ALBUMIN 3.3 G/DL (3.4-5.0); ANION GAP 15 (8-16); BLOOD UREA NITROGEN 23 MG/DL (7-18); BUN/CREATININE RATIO 6.9 (5.4-32.0); CHLORIDE 94 MMOL/L (99-107); CREATININE 3.34 MG/DL (0.60-1.10); GLUCOSE 130 MG/DL (70-104); SODIUM 136 MMOL/L (135-145); TOTAL CARBON DIOXIDE 27.3 MMOL/L (24-32); eGFR 20 ML/MIN
[2022-12-30 00:36] LABS: CALCIUM 5.9 MG/DL (8.5-10.1)
[2022-12-30] MEDS: albumin (Human) 5% 250ml 250 ML IV SCH ×4 (01:47→08:01)
[2022-12-30] MEDS ORDERED: VANCOMYCIN LEVEL IV SCH (03:00)
[2022-12-30] MEDS: SODIUM BICARB 150mEq/D5W 1L 1,000 ML IV SCH ×2 (03:08→09:33)
[2022-12-30 03:34] LABS: ABG BASE EXCESS 0.9 mmol/L (-2.0-2.0); ABG HCO3 25.7 mmol/L (22.0-26.0); ABG OXYGEN SATURATION 95.6 % (94-97); ABG PCO2 (T) 44.2 mmHg (35.0-48.0); ABG PO2 (T) 88.4 mmHg (75.0-100.0); FCOHb 0.9 % (0.0-3.9); FMetHb 0.5 % (0.0-1.5); FO2Hb 94.3 % (94-97); PEEP 10 cm H2O; RESPIRATORY RATE 18 b/min; TIDAL VOLUME 500 mL; TOTAL HEMOGLOBIN 8.2 G/dl (14.0-17.9)
[2022-12-30] MEDS: FENTANYL-0.9 % NACL/PF 100 ML IV PRN (03:36)
[2022-12-30] MEDS: octreotide inj. 500 MCG in normal saline 100ml IV soln 97.5 ML IV SCH (05:30)
[2022-12-30 06:02] LABS: EOSINOPHILS # (AUTO) 0.5 X10'3 (0-0.9); HEMOGLOBIN 7.9 g/dl (14.0-17.9); LYMPHOCYTES # (AUTO) 0.4 X10'3 (1.1-4.8); MEAN CORPUSCULAR VOLUME 91.9 FL (78-98); MONOCYTES # (AUTO) 1.3 X10'3 (0-0.9)
[2022-12-30 06:04] LABS: BASOPHILS % (AUTO) 0.1 % (0-1); EOSINOPHILS % (AUTO) 3.5 % (0-6); HEMATOCRIT 23.7 % (42.0-52.0); LYMPHOCYTES % (AUTO) 3.2 % (21-51); MEAN CORPUSCULAR HEMOGLOBIN 30.7 PG (27.0-31.0); MEAN CORPUSCULAR HGB CONC 33.4 g/dL (33.0-36.5); MEAN PLATELET VOLUME 9.2 FL (7.4-10.4); NEUTROPHILS # (AUTO) 10.7 X10'3 (1.8-7.7); NEUTROPHILS % (AUTO) 83.2 % (42-75); PLATELET COUNT 56 X10'3 (140-440); RED BLOOD COUNT 2.58 X10'6 (4.70-6.10); RED CELL DISTRIBUTION WIDTH 14.9 % (11.5-14.5); WHITE BLOOD COUNT 12.9 X10'3 (4.5-11.0)
--- NOTE | 2022-12-30 06:11 | NUR ---
Problems reprioritized. Patient report given, questions answered & plan of care reviewed with Celia FLORES.
[2022-12-30 06:27] LABS: ALBUMIN 3.5 G/DL (3.4-5.0); ALKALINE PHOSPHATASE 278 IU/L (46-116); ANION GAP 16 (8-16); BILIRUBIN,TOTAL 10.9 MG/DL (0.1-1.0); BLOOD UREA NITROGEN 25 MG/DL (7-18); BUN/CREATININE RATIO 6.5 (5.4-32.0); CHLORIDE 94 MMOL/L (99-107); CREATININE 3.83 MG/DL (0.60-1.10); GLUCOSE 163 MG/DL (70-104); MAGNESIUM 1.6 MG/DL (1.5-2.4); SODIUM 136 MMOL/L (135-145); TOTAL CARBON DIOXIDE 26.2 MMOL/L (24-32); eGFR 17 ML/MIN
--- NOTE | 2022-12-30 06:30 | NUR ---
Patient in room CICU 2014. I have received report from SANDRA Walker and had the opportunity to ask questions and assume patient care.
[2022-12-30 06:31] LABS: ALANINE AMINOTRANSFERASE 3257 U/L (12-78); ALBUMIN/GLOBULIN RATIO 3.2 (1.1-1.5); PHOSPHORUS 5.3 MG/DL (2.3-4.5); POTASSIUM 4.9 MMOL/L (3.5-5.1); TOTAL PROTEIN 4.6 G/DL (6.4-8.2)
[2022-12-30 06:44] LABS: NUCLEATED RED BLOOD CELLS 1 /100WBC (0-0); TOTAL CELLS COUNTED 100
[2022-12-30 06:45] LABS: PLATELET ESTIMATE DECREASED; POLYCHROMASIA 1+
[2022-12-30 06:49] LABS: ASPARTATE AMINO TRANSFERASE > 7000 U/L (10-37)
[2022-12-30 06:50] LABS: CALCIUM 5.6 MG/DL (8.5-10.1)
[2022-12-30] MEDS ORDERED: vancomycin/NS 1 GM ADD-VANTAGE 250 ML IV ONE (06:50)
[2022-12-30 06:51] LABS: APTT 95 SECONDS (22-32)
[2022-12-30] MEDS: thiamine 100mg/ml 2ml inj. IV SCH (07:21)
[2022-12-30] MEDS: methylPREDNISolone sod succ/PF 40mg inj. IV SCH (07:25)
[2022-12-30] MEDS: folic acid 1mg/0.2ml inj IV SCH (07:25)
[2022-12-30] MEDS: K and/or MAG REPLACEMENT MC SCH (07:28)
[2022-12-30] MEDS: docusate sod 100mg capsule PO SCH (07:28)
--- NOTE | 2022-12-30 08:44 | NUR ---
Dr. Bradford rounded on patient, he stated to turn the Fio2 to 40% and if he does well then we can wean the peep down to 8 and after a few hours we can wean to 5. Dr. Bradford was also informed of all of the critical labs. He was also shown the patient's right neck which appears to be swollen. He agreed however, no new orders at this time.
[2022-12-30] MEDS: NORepinephrine inj. 32 MG in normal saline 250ml IV soln 218 ML IV SCH (10:40)
--- NOTE | 2022-12-30 12:21 | NUR ---
Patient family bedside to speak to Dr. Bradford about patient going comfort care.
[2022-12-30] MEDS ORDERED: morphine 10mg/ml inj. IV PRN (12:40)
--- NOTE | 2022-12-30 13:00 | NUR ---
Patient extubated to comfort care
--- NOTE | 2022-12-30 13:51 | NUR ---
RN IS TO DOCUMENT YES TO ALL APPLICABLE AREAS Pronouncement of : 1. Time Physician Notified:[id number] 2. Date of : 12/30 3. Time of : 1323 4. DNR/Withdraw life support documented:Y 5. Monitor strip has been placed on chart:Y 6. Assessment process is of one-minute duration and includes following criteria: a) Patient is unresponsive to all stimuli: Y b) Pupils fixed and non-reactive:Y c) Auscultation of precordium reveals absence of heart tones:Y d) Auscultation of lungs reveals absence of breath sounds:Y e) Absence of blood pressure / all vital signs:Y f) QRS complexes are not present on monitor / EKG strip:Y g) Pacer spikes without capture:Y 4. Comments: Addendum: 12/30/22 at 1618 by Celia Javed RN No pace maker present, the answer to g) is N/A
--- NOTE | 2022-12-30 16:18 | NUR ---
Patient picked up by Zachary.
== END 2022-12-30 13:23 | DRG 720 ==
LOC: ER 18:36 → ED HOLD 21:45 → CICU 2S 12-28 07:55
PROVIDERS: ADMIT Internal Medicine Critical Care Medicine; ATTEND Internal Medicine Critical Care Medicine
PROC: 02HV33Z Insertion of Infusion Device into Superior Vena Cava, Percutaneous Approach (ICD-10-PCS; 2022-12-27)
PROC: 5A1945Z Respiratory Ventilation, 24-96 Consecutive Hours (ICD-10-PCS; principal; 2022-12-28)
PROC: 5A12012 Performance of Cardiac Output, Single, Manual (ICD-10-PCS; 2022-12-28)
PROC: 0BH17EZ Insertion of Endotracheal Airway into Trachea, Via Natural or Artificial Opening (ICD-10-PCS; 2022-12-28)
PROC: 30233R1 Transfusion of Nonautologous Platelets into Peripheral Vein, Percutaneous Approach (ICD-10-PCS; 2022-12-28)
PROC: 02HV33Z Insertion of Infusion Device into Superior Vena Cava, Percutaneous Approach (ICD-10-PCS; 2022-12-28)
PROC: B548ZZA Ultrasonography of Superior Vena Cava, Guidance (ICD-10-PCS; 2022-12-28)
PROC: 04HY32Z Insertion of Monitoring Device into Lower Artery, Percutaneous Approach (ICD-10-PCS; 2022-12-28)
PROC: 5A1D70Z Performance of Urinary Filtration, Intermittent, Less than 6 Hours Per Day (ICD-10-PCS; 2022-12-28)
PROC: 0DJ08ZZ Inspection of Upper Intestinal Tract, Via Natural or Artificial Opening Endoscopic (ICD-10-PCS; 2022-12-29)
PROC: 30233N1 Transfusion of Nonautologous Red Blood Cells into Peripheral Vein, Percutaneous Approach (ICD-10-PCS; 2022-12-30)
DX: A41.9 Sepsis, unspecified organism (principal); I46.9 Cardiac arrest, cause unspecified; J96.01 Acute respiratory failure with hypoxia; K72.00 Acute and subacute hepatic failure without coma; N17.0 Acute kidney failure with tubular necrosis; D68.9 Coagulation defect, unspecified; K76.82 Hepatic encephalopathy; D69.6 Thrombocytopenia, unspecified; Z51.5 Encounter for palliative care; Z66 Do not resuscitate; K92.0 Hematemesis; E16.2 Hypoglycemia, unspecified; E87.5 Hyperkalemia; R73.9 Hyperglycemia, unspecified; D64.9 Anemia, unspecified; E86.0 Dehydration; R65.21 Severe sepsis with septic shock; R00.1 Bradycardia, unspecified; F12.90 Cannabis use, unspecified, uncomplicated; R34 Anuria and oliguria; F10.229 Alcohol dependence with intoxication, unspecified; K21.00 Gastro-esophageal reflux disease with esophagitis, without bleeding; K29.80 Duodenitis without bleeding; T68.XXXA Hypothermia, initial encounter; K44.9 Diaphragmatic hernia without obstruction or gangrene; M62.82 Rhabdomyolysis; X31.XXXA Exposure to excessive natural cold, initial encounter; Z59.00 Homelessness unspecified; Z89.519 Acquired absence of unspecified leg below knee; Z56.0 Unemployment, unspecified; Z79.899 Other long term (current) drug therapy
CPT/HCPCS: 31500; 36415; 36430; 36556; 36600; 43235; 70450; 71045; 71250; 74176; 76770; 80048; 80053; 80202; 80305; 80320; 80329; 81001; 82140; 82550; 82570; 82803; 82947; 82948; 83605; 83735; 83880; 84100; 84145; 84156; 84300; 84484; 85007; 85018; 85025; 85027; 85379; 85384; 85610; 85730; 86885; 86900; 86901; 86920; 87040; 87070; 87081; 87207; 87340; 90935; 93005; 94002; 94003; 94760; 96365; 96368; 96375; 99152; 99291; 99292; A4615; A6196; A6213; A6258; A6449; A9900; C1751; C1752; C9113; E1594; G0378; J0132; J0171; J1100; J1644; J2250; J2274; J2310; J2354; J2543; J2704; J2920; J2930; J3010; J3370; J3411; J3490; J7030; J7040; J7042; J7050; J7060; J7070; J7121; P9016; P9035; P9045; P9047; Q4081